=== PATIENT | female | born 1935 | race Caucasian/White ===

== ENCOUNTER 2017-03-02 10:25 | Emergency (ER) | payer MEDICARE ==
[2017-03-02 11:51] LABS: APPEARANCE SLT CLOUDY (CLEAR); BILIRUBIN NEGATIVE (NEGATIVE); COLOR YELLOW (YELLOW); GLUCOSE NEGATIVE (NEGATIVE); KETONE NEGATIVE (NEGATIVE); LEUKOCYTE ESTERASE 2+ (NEGATIVE); NITRITE NEGATIVE (NEGATIVE); PROTEIN TRACE mg/dL (NEGATIVE); SPECIFIC GRAVITY 1.015 (1.005-1.020); UROBILINOGEN NORMAL (NORMAL)
[2017-03-02 11:52] LABS: BACTERIA MODERATE /hpf (NONE SEEN); EPITHELIAL CELLS 0-5 /hpf (0-5); RED CELLS - URINE 0-5 /hpf (0-5)
== END 2017-03-02 12:12 | disposition home or self-care (01) ==
LOC: D.ER 10:25
PROVIDERS: Emergency Medicine
DX: M54.5 Low back pain (principal); I10 Essential (primary) hypertension; Z85.43 Personal history of malignant neoplasm of ovary

== ENCOUNTER 2017-03-05 11:06 | Inpatient (IN) | payer MEDICARE, OTHER ==
[~2017-03-05] VITALS: Ht 162.6 cm; Wt 99.8 kg
[2017-03-05] MEDS ORDERED: TOPROL XL100 MG PO (17:52)
[2017-03-05] MEDS ORDERED: FUROSEMIDE40 MG PO (17:52)
[2017-03-05] MEDS ORDERED: PLAVIX75 MG PO (17:53)
[2017-03-05] MEDS ORDERED: COZAAR50 MG PO (17:53)
[2017-03-05] MEDS ORDERED: NEURONTIN800 MG PO (17:54)
[2017-03-05] MEDS ORDERED: GLUCOPHAGE500 MG PO (17:55)
[2017-03-05] MEDS ORDERED: ZOCOR10 MG PO (18:03)
[2017-03-05] MEDS ORDERED: DETROL LA4 MG PO (18:04)
[2017-03-06 13:17] VITALS: Ht 162.6 cm; Wt 99.8 kg
[2017-03-10] MEDS ORDERED: OMNICEF300 MG PO (11:55)
[2017-03-10 12:33] VITALS: BP 154/67
== END 2017-03-10 17:30 | DRG 690 ==
LOC: D.ER 11:06 → D.MS 14:40 → D.SDCHOLD 15:35 → D.MS 15:36
PROVIDERS: ADMIT Family Medicine
DX: N39.0 Urinary tract infection, site not specified (principal); I10 Essential (primary) hypertension; E11.9 Type 2 diabetes mellitus without complications; Z79.84 Long term (current) use of oral hypoglycemic drugs; W17.89XA Other fall from one level to another, initial encounter; M54.9 Dorsalgia, unspecified

== ENCOUNTER 2017-03-10 18:49 | Inpatient (IN) | payer MEDICARE, OTHER ==
[~2017-03-10] VITALS: Ht 162.6 cm; Wt 106.0 kg
[~2017-03-10 18:49] MED LIST: COZAAR50 MG PO; DETROL LA4 MG PO; FUROSEMIDE40 MG PO; GLUCOPHAGE500 MG PO; NEURONTIN800 MG PO; OMNICEF300 MG PO; PLAVIX75 MG PO; TOPROL XL100 MG PO; ZOCOR10 MG PO
[2017-03-10 19:23] VITALS: BP 125/57; BMI 40.2
[2017-03-11 06:32] LABS: BASOPHILS 0.6 % (0-2); EOSINOPHILS 5.7 % (0-7); HEMOGLOBIN 12.5 g/dL (12-16); IMMATURE GRANULOCYTES 0.2 % (0-5); LYMPHOCYTES 28.5 % (15-50); MCH 31.1 pg (26.0-34.0); MCHC 32.9 g/dL (31.0-37.0); MCV 94.5 fL (80.0-100.0); MEAN PLATELET VOLUME 9.5 fL (7.4-10.4); MONOCYTES 10.6 % (2-11); NEUTROPHILS 54.4 % (40-80); PLATELET COUNT 149 10x3/uL (130-400); RBC 4.02 10x6/uL (4.00-5.40); RDW 13.2 % (11.5-14.5); WBC 5.1 10x3/uL (4.8-10.8)
[2017-03-11 07:50] LABS: ANION GAP 12.1 mmol/L (8-16); CALCIUM 8.7 mg/dL (8.5-10.1); CARBON DIOXIDE 29.5 mmol/L (21.0-32.0); CREATININE - SERUM 1.1 mg/dL (0.6-1.3)
[2017-03-11 07:57] LABS: POTASSIUM - SERUM 3.6 mmol/L (3.5-5.1)
[2017-03-11 09:04] VITALS: BP 146/65
[2017-03-11 11:25] VITALS: Ht 162.6 cm; Wt 106.0 kg
--- NOTE | 2017-03-11 17:20 | RHP ---
PATIENT: IRMA MORENO MEDICAL RECORD: [id number] ACCOUNT: [id number] [id number] ADMISSION DATE: 03/10/17 REHABILITATION HISTORY AND PHYSICAL EXAMINATION POST ADMISSION PHYSICIAN EXAMINATION Post-Admission Physical Examination and History and Physical ADMITTING DIAGNOSES: Debility secondary to urinary tract infection. HISTORY OF PRESENT ILLNESS: The patient was admitted to the inpatient rehab for debility due to urinary tract infection. She is an 81-year-old female patient, who fell on March 01, he came to the ED and was transferred back home. Due to increased pain, she came back to the hospital on March 05, was admitted for pain management, acute mental status changes and was found to have a UTI. She has got a history of hypertension, diabetes, frequent UTIs. She stated that she missed a step of an elevation and fell on March 01. She does not remember hitting anything on the way down or head injury. She had a few abrasions to her right elbow and had felt extreme back pain ever since. She continues with severe pain that is worse when she takes a deep breath or adjust positions. Apparently, she would cry out in pain due to sudden spasms of pain. All x-rays of her ribs, lumbar spine and pelvis showed no fractures. Her cognition has cleared and her pain is somewhat under control. She is on telemetry, has been having some elevated blood pressures, receiving IV antibiotics for UTI, monitoring her blood sugars closely, has been receiving pain medicine. She lives alone, was in the past and was her 's caregiver. She uses a rolling walker inside and outside her home and she feels she needs it. She was independent with her ADLs. She is currently moderate assist in her mobility and setup with moderate assist for ADLs. She would like to return home in her prior level of functioning or better. 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 PAST MEDICAL HISTORY: Significant for neuropathy, weakness, diabetes, hypertension, kidney stones, hematuria, UTI, diarrhea, ovarian cancer and chronic back pain. PAST SURGICAL HISTORY: Includes knee surgery, hysterectomy, cataracts and gallbladder. ALLERGIES: MORPHINE. CURRENT MEDICATIONS: She is on Lidoderm patch. She is on Detrol-LA 4 mg daily. She is on metoprolol 100 mg daily. Glucophage 1000 mg daily. She is on furosemide 40 mg daily, Plavix 75 mg daily, simvastatin 10 mg q.h.s., Neurontin 800 mg b.i.d., Omnicef 300 mg b.i.d., and polyethylene glycol 17 g in 8 ounces of water daily. HABITS: No alcohol or tobacco use. FAMILY HISTORY: Noncontributory. HISTORY AND PHYSICAL [id number] IRMA MORENO SOCIAL HISTORY: The patient hopes to return back home to her prior level of functioning or better. REVIEW OF SYSTEMS: GENERAL: Does complain of weakness. HEENT: She denies cold, cough, or congestion. CARDIOVASCULAR: Denies chest pain. PHYSICAL EXAMINATION: VITAL SIGNS: Stable, afebrile. GENERAL: A somewhat morbidly obese female in no acute distress, alert upon exam. HEENT: Normocephalic and atraumatic. Mucosa moist. NECK: Supple. No lymphadenopathy. LUNGS: Clear at this time. HEART: Regular rate and rhythm. ABDOMEN: Benign. EXTREMITIES: No clubbing, cyanosis or edema. NEUROLOGIC: Seems intact. LABORATORY DATA: White count is 5.1, H&H 12 and 38 and platelet count is 149. Her sodium is 144, potassium 3.6, BUN and creatinine of 20 and 1.1, and blood sugar is 96. ASSESSMENT: This is an 81-year-old female patient who presents secondary to debility secondary to urinary tract infection and frequent falls. The patient has potential to make improvement. We instituted the following multidisciplinary therapies including, but not limited to physical, occupational, respiratory, speech, nutritional services, prosthetics and orthotics. Given her complex condition and risk for more complications, rehabilitation services cannot be provided at a lower level of care such as a [place] [facility] facility. PLAN: 1. Admit to [facility] rehab for intensive inpatient therapy to include the following disciplines: A. Physical therapy to improve gait, all transfer skills and bed mobility to a modified independent level. B. Occupation therapy to improve activities of daily living to a modified independent level. C. Case management to assist with discharge planning and placement options. D. Nutrition to assist with nutritional needs. E. Rehabilitation nursing to assist in monitoring the patient's underlying medical conditions and to assist with any type of bowel or bladder management. 2. The patient's current medications and medical care will be continued. 3. The patient will be placed on standard fall precautions. 4. The patient's estimated length of stay is approximately 7-10 days. 5. Discuss this patient during care team staff meeting this week. TRANSINT:[id number] Voice Confirmation ID: [id number] DOCUMENT ID: [id number] MELIZA notes whether there has been none or any medical/functional change since admission: - HISTORY AND PHYSICAL [id number] IRMA MORENO attests patient continues to be appropriate for IRF: - JOVANY ANDERSON MD at 1720 CC: [id number] DICTATION DATE: 03/11/17 1144 TECHNICAL PROGRAM MANAGER: 03/11/17 1237 ADM IN [address] [id number] [place] [address]
[2017-03-11 21:50] VITALS: BP 143/71
[2017-03-12 08:47] VITALS: BP 157/59
[2017-03-12 21:15] VITALS: BP 144/62
[2017-03-13 06:07] LABS: BASOPHILS 0.3 % (0-2); EOSINOPHILS 4.7 % (0-7); HEMATOCRIT 37.4 % (36.0-48.0); HEMOGLOBIN 12.4 g/dL (12-16); IMMATURE GRANULOCYTES 0.2 % (0-5); LYMPHOCYTES 23.1 % (15-50); MCH 31.4 pg (26.0-34.0); MCHC 33.2 g/dL (31.0-37.0); MCV 94.7 fL (80.0-100.0); MEAN PLATELET VOLUME 9.4 fL (7.4-10.4); MONOCYTES 10.6 % (2-11); NEUTROPHILS 61.1 % (40-80); PLATELET COUNT 149 10x3/uL (130-400); RBC 3.95 10x6/uL (4.00-5.40); RDW 13.3 % (11.5-14.5); WBC 6.1 10x3/uL (4.8-10.8)
[2017-03-13 06:19] LABS: ANION GAP 10.9 mmol/L (8-16); CALCIUM 8.6 mg/dL (8.5-10.1); CARBON DIOXIDE 28.9 mmol/L (21.0-32.0); CREATININE - SERUM 1.1 mg/dL (0.6-1.3); POTASSIUM - SERUM 3.8 mmol/L (3.5-5.1)
[2017-03-13 07:39] VITALS: BP 146/58
[2017-03-13 22:40] VITALS: BP 144/62
== END 2017-03-14 15:37 | disposition home health service (06) | DRG 948 ==
LOC: D.REHAB 18:49
PROVIDERS: ADMIT Emergency Medicine
DX: R53.81 Other malaise (principal); N39.0 Urinary tract infection, site not specified; E11.9 Type 2 diabetes mellitus without complications; M54.5 Low back pain; R41.82 Altered mental status, unspecified; R11.2 Nausea with vomiting, unspecified; M19.90 Unspecified osteoarthritis, unspecified site; I80.9 Phlebitis and thrombophlebitis of unspecified site; G31.9 Degenerative disease of nervous system, unspecified

== ENCOUNTER → 2017-04-13 10:18 | Outpatient (CLI) | payer MEDICARE, OTHER ==
[2017-03-11 11:25] VITALS: BMI 40.1
== END | disposition home or self-care (01) ==
LOC: EDBD 10:18 → D.CT 10:18
DX: R10.30 Lower abdominal pain, unspecified (principal)

== ENCOUNTER → 2017-05-06 13:10 | Outpatient (CLI) | payer MEDICARE, OTHER ==
[2017-03-11 11:25] VITALS: BMI 40.1
== END | disposition home or self-care (01) ==
LOC: D.US 05-01 08:00 → D.MRI 05-01 08:00 → D.US 05-01 09:00 → D.MRI 05-05 10:00
DX: M54.5 Low back pain (principal)